=== PATIENT | male | born 1990 | race Caucasian/White ===

== ENCOUNTER 2018-03-31 01:45 | Emergency (ER) | payer OTHER ==
[~2018-03-31] VITALS: Ht 193 cm; Wt 105.4 kg
[2018-03-31 02:02] LABS: HEMATOCRIT 44.5 % (38.0-50.0); HEMOGLOBIN 16.2 G/DL (12.5-16.6); MCH 30.1 PG (29.0-34.0); MCHC 36.4 G/DL (30.0-36.0); MCV 82.7 FL (86-99); PLATELET COUNT 256 K/uL (156-360); RBC DIS.WIDTH-CV 12.1 % (11.8-14.6); RBC DIS.WIDTH-SD 36.3 % (39-53); RED BLOOD COUNT 5.38 M/uL (4.00-5.50); WHITE BLOOD COUNT 7.9 K/uL (4.1-10.2)
[2018-03-31 02:11] LABS: CHLORIDE 106 mEq/L (99-109); POTASSIUM 3.8 mEq/L (3.7-5.4); SODIUM 138 mEq/L (136-147)
[2018-03-31 02:12] LABS: GLUCOSE 102 mg/dL (70-99)
[2018-03-31 02:16] LABS: GFR ESTIMATE (CALCULATED) > 59 mL/min/ (58.99-99999)
[2018-03-31 02:17] LABS: UREA NITROGEN (BUN) 13 mg/dL (9-23)
[2018-03-31 02:24] LABS: TROP-I INTERPRETATION NEGATIVE; TROPONIN-I < 0.01 ng/mL (0.0-0.30)
[2018-03-31 06:25] LABS: TROP-I INTERPRETATION NEGATIVE; TROPONIN-I < 0.01 ng/mL (0.0-0.30)
[2018-03-31 06:37] VITALS: BP 126/74
== END 2018-03-31 06:46 | disposition home or self-care (01) ==
LOC: EME 01:45
PROVIDERS: Emergency Medicine
DX: R07.89 Other chest pain (principal)
CPT/HCPCS: 71046; 80048; 84484; 85027; 93005; 99281; 99285

== ENCOUNTER 2018-04-20 23:05 | Emergency (ER) | payer OTHER ==
[~2018-04-20] VITALS: Ht 193 cm; Wt 106.1 kg
[2018-04-20 23:36] LABS: HEMATOCRIT 42.5 % (38.0-50.0); HEMOGLOBIN 15.3 G/DL (12.5-16.6); MCH 29.9 PG (29.0-34.0); MCV 83.2 FL (86-99); PLATELET COUNT 255 K/uL (156-360); RBC DIS.WIDTH-CV 11.9 % (11.8-14.6); RBC DIS.WIDTH-SD 36.4 % (39-53); RED BLOOD COUNT 5.11 M/uL (4.00-5.50); WHITE BLOOD COUNT 8.6 K/uL (4.1-10.2)
[2018-04-20 23:45] LABS: CHLORIDE 106 mEq/L (99-109); SODIUM 142 mEq/L (136-147)
[2018-04-20 23:47] LABS: GLUCOSE 120 mg/dL (70-99)
[2018-04-20 23:51] LABS: GFR ESTIMATE (CALCULATED) > 59 mL/min/ (58.99-99999)
[2018-04-20 23:52] LABS: UREA NITROGEN (BUN) 11 mg/dL (9-23)
[2018-04-20 23:54] LABS: LIPASE 16 U/L (1.0-51.0)
[2018-04-20 23:58] LABS: TROP-I INTERPRETATION NEGATIVE; TROPONIN-I < 0.01 ng/mL (0.0-0.30)
[2018-04-21 00:14] LABS: ALBUMIN 4.9 g/dL (3.2-4.8)
[2018-04-21 00:17] LABS: TOTAL PROTEIN 7.4 g/dL (6.4-8.3)
[2018-04-21 00:18] LABS: TOTAL BILIRUBIN 0.4 mg/dL (0.0-1.0)
[2018-04-21 00:19] LABS: ALKALINE PHOSPHATASE 85 IU/L (3-129)
[2018-04-21 00:22] LABS: AST (GOT) 19 IU/L (2-34); DIRECT BILIRUBIN 0.2 mg/dL (0.0-0.3)
[2018-04-21 00:23] LABS: ALT (GPT) 32 IU/L (3-49)
[2018-04-21 02:09] LABS: TROP-I INTERPRETATION NEGATIVE; TROPONIN-I < 0.01 ng/mL (0.0-0.30)
[2018-04-21] MEDS ORDERED: NEXIUM40 MG PO (02:23)
[2018-04-21 02:41] VITALS: BP 113/69
== END 2018-04-21 02:42 | disposition home or self-care (01) ==
LOC: EME 23:05
PROVIDERS: Emergency Medicine
DX: R07.9 Chest pain, unspecified (principal); K21.9 Gastro-esophageal reflux disease without esophagitis; Z82.49 Family history of ischemic heart disease and other diseases of the circulatory system
CPT/HCPCS: 71046; 76705; 80048; 80076; 83690; 84484; 85027; 93005; 99281; 99284